=== PATIENT | female | born 1995 | race American Indian/Alaskan Native ===

== ENCOUNTER 2017-08-23 21:02 | Emergency (ER) | payer OTHER, BC ==
[2017-08-24 04:23] VITALS: BP 108/75
[2017-08-24] MEDS ORDERED: TYLENOL PO ONE (04:23)
[2017-08-24] MEDS ORDERED: TYLENOL ONE (04:25)
[2017-08-24] MEDS ORDERED: MOTRIN PO ONE (05:54)
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
== END 2017-08-24 07:19 | disposition home or self-care (01) ==
LOC: ED 21:02
DX: S16.1XXA Strain of muscle, fascia and tendon at neck level, initial encounter (principal); M62.838 Other muscle spasm; V89.2XXA Person injured in unspecified motor-vehicle accident, traffic, initial encounter; Y93.9 Activity, unspecified; Y99.9 Unspecified external cause status; Y92.410 Unspecified street and highway as the place of occurrence of the external cause
CPT/HCPCS: 72125